=== PATIENT | female | born 1975 | race Caucasian/White ===

== ENCOUNTER 2016-07-14 03:56 | Emergency (ER) | payer OTHER ==
[~2016-07-14] VITALS: Ht 160 cm; Wt 87.8 kg
[2016-07-14 03:58] VITALS: Ht 160 cm; Wt 87.8 kg
[2016-07-14] MEDS ORDERED: ONDANSETRON 4 MG INJ IV STA (04:05)
[2016-07-14] MEDS ORDERED: morphine 4 MG/ML VIAL IV STA (04:05)
[2016-07-14] MEDS ORDERED: LIDOCAINE/MYLANTA 40 ML BTL PO ONE (04:30)
[2016-07-14 04:36] LABS: ADD UMIC YES; URINE BILIRUBIN (Dip) NEGATIVE (NEGATIVE); URINE BLOOD (Dip) TRACE (NEGATIVE); URINE COLOR LT. YELLOW (YELLOW); URINE GLUCOSE (Dip) NEGATIVE (NEGATIVE); URINE KETONES (Dip) NEGATIVE (NEGATIVE); URINE LEUKOCYTE ESTERASE (Dip) 1+ (NEGATIVE); URINE NITRITE (Dip) NEGATIVE (NEGATIVE); URINE TOTAL PROTEIN (Dip) NEGATIVE (NEGATIVE); URINE UROBILINOGEN (Dip) 0.2 E.U./dL (0.1-1.0)
[2016-07-14 04:36] LABS: ADD SCAN DIFF NO
[2016-07-14 04:47] LABS: CHLORIDE 101 mmol/L (97-110)
[2016-07-14 04:48] LABS: POTASSIUM 3.4 mmol/L (3.5-5.1); SODIUM 140 mmol/L (135-144)
[2016-07-14 04:49] LABS: INR 0.99; PROTIME 13.1 Sec (12.2-14.2)
[2016-07-14 04:50] LABS: BASOPHILS % 0.4 % (0.0-2.0); CREATININE 0.59 mg/dl (0.44-1.00); EOSINOPHILS # 0.2 10^3/ul (0.0-0.5); EOSINOPHILS % 1.5 % (0.0-7.0); HEMATOCRIT 32.1 % (37.0-47.0); HEMOGLOBIN 9.4 g/dl (12.0-16.0); LYMPHOCYTES # 3.2 10^3/ul (0.8-2.9); LYMPHOCYTES % 32.9 % (15.0-51.0); MEAN CORPUSCULAR HEMOGLOBIN 20.2 pg (29.0-33.0); MEAN CORPUSCULAR HGB CONC 29.3 g/dl (32.0-37.0); MEAN PLATELET VOLUME 10.7 fl (7.4-10.4); MONOCYTE # 0.7 10^3/ul (0.3-0.9); MONOCYTES % 7.1 % (0.0-11.0); NEUTROPHIL # 5.6 10^3/ul (1.6-7.5); NEUTROPHILS % 57.8 % (39.0-77.0); PARTIAL THROMBOPLASTIN TIME 30.9 Sec (25.0-35.0); PLATELET COUNT 436 10^3/UL (140-415); RED BLOOD COUNT 4.65 10^6/ul (4.20-5.40); WHITE BLOOD COUNT 9.7 10^3/ul (4.8-10.8)
[2016-07-14 04:51] LABS: ANION GAP 17 (8-16); BLOOD UREA NITROGEN 11 mg/dl (7-20); CALCIUM 8.8 mg/dl (8.4-10.2); CARBON DIOXIDE 25 mmol/L (21-31); GLUCOSE 148 mg/dl (70-220)
--- NOTE | 2016-07-14 04:51 | RADRPT ---
PROCEDURE: XR Chest. CLINICAL INDICATION: Chest pain TECHNIQUE: AP Portable chest. COMPARISON: No pertinent prior examinations were submitted for comparison. FINDINGS: The cardiomediastinal silhouette is normal. The lungs are clear. The osseous structures are unrema rkable. IMPRESSION: No acute findings. RPTAT: HIKT .Farrukh Gay MD, MD Date Time Electronically viewed and signed by .Farrukh Gay MD, MD on 07/14/2016 04:51 .T/
[2016-07-14 05:00] VITALS: BP 142/95; PULSE 79; RESP 18
[2016-07-14 05:08] LABS: BACTERIA,URINE MODERATE; SQUAMOUS EPITHELIAL CELL,UR MODERATE
[2016-07-14 05:21] LABS: TROPONIN-I < 0.012 ng/ml (0.00-0.12)
--- NOTE | 2016-07-14 05:40 | ERD ---
ER Documentation Chief Complaint Date/Time DATE: 07/14/16 TIME: 05:38 Chief Complaint epigastric pain since 9pm HPI This is a 41-year-old female with epigastric pain since 9 PM. Pain is mild to moderate in intensity. Burning in sensation. Nonradiating. Mild associated nausea. No vomiting. No other current complaints. ROS All systems reviewed and are negative except as per history of present illness. Allergies Allergies: Coded Allergies: No Known Allergy (Unverified , 07/14/16) PMhx/Soc Medical and Surgical Hx: pt denies Medical Hx, pt denies Surgical Hx History of Surgery: No Anesthesia Reaction: No Hx Neurological Disorder: No Hx Respiratory Disorders: No Hx Cardiac Disorders: No Hx Psychiatric Problems: No Hx Miscellaneous Medical Probl: No Hx Alcohol Use: Yes (SOCIAL) Hx Substance Use: No Hx Tobacco Use: No Smoking Status: Never smoker Physical Exam Vitals Vital Signs Date Time Temp Pulse Resp B/P Pulse Ox O2 Delivery O2 Flow Rate FiO2 07/14/16 05:00 79 18 142/95 98 Room Air 07/14/16 03:58 97.4 81 17 208/96 98 Physical Exam Const: [] Head: Atraumatic Eyes: Normal Conjunctiva ENT: Normal External Ears, Nose and Mouth. Neck: Full range of motion..~ No meningismus. Resp: Clear to auscultation bilaterally Cardio: Regular rate and rhythm, no murmurs Abd: Soft, non tender, non distended. Normal bowel sounds Skin: No petechiae or rashes Back: No midline or flank tenderness Ext: No cyanosis, or edema Neur: Awake and alert Psych: Normal Mood and Affect Result Diagram: 07/14/16 0415 07/14/16 0415 Results 24 hrs Laboratory Tests Test 07/14/16 04:10 07/14/16 04:15 Urine Color LT. YELLOW Urine Clarity CLEAR Urine pH 6.5 Urine Specific [place] 1.015 Urine Ketones NEGATIVE Urine Nitrite NEGATIVE Urine Bilirubin NEGATIVE Urine Urobilinogen 0.2 E.U./dL Urine Leukocyte Esterase 1+ Urine Microscopic RBC 2-5/HPF Urine Microscopic WBC 2-5/HPF Urine Squamous Epithelial Cells MODERATE Urine Bacteria MODERATE Urine Hemoglobin TRACE Urine Glucose NEGATIVE% Urine Total Protein NEGATIVE White Blood Count 9.710^3/ul Red Blood Count 4.6510^6/ul Hemoglobin 9.4g/dl Hematocrit 32.1% Mean Corpuscular Volume 69.0fl Mean Corpuscular Hemoglobin 20.2pg Mean Corpuscular Hemoglobin Concent 29.3g/dl Red Cell Distribution Width 18.0% Platelet Count 38146^3/UL Mean Platelet Volume 10.7fl Neutrophils % 57.8% Lymphocytes % 32.9% Monocytes % 7.1% Eosinophils % 1.5% Basophils % 0.4% Nucleated Red Blood Cells % 0.0/100WBC Neutrophils # 5.610^3/ul Lymphocytes # 3.210^3/ul Monocytes # 0.710^3/ul Eosinophils # 0.210^3/ul Basophils # 0.010^3/ul Nucleated Red Blood Cells # 0.010^3/ul Prothrombin Time 13.1Sec Prothrombin Time Ratio 1.0 INR International Normalized Ratio 0.99 Activated Partial Thromboplast Time 30.9Sec Sodium Level 140mmol/L Potassium Level 3.4mmol/L Chloride Level 101mmol/L Carbon Dioxide Level 25mmol/L Anion Gap 17 Blood Urea Nitrogen 11mg/dl Creatinine 0.59mg/dl Glucose Level 148mg/dl Calcium Level 8.8mg/dl Troponin I < 0.012ng/ml Current Medications Medications (Trade) Dose Ordered Sig/[place] Route PRN Reason Start Time Stop Time Status Last Admin Dose Admin Morphine Sulfate (morphine) 4 mg ONCE STAT IV 07/14/16 04:05 07/14/16 04:14 DC 07/14/16 04:19 Ondansetron HCl (Zofran Inj) 4 mg ONCE STAT IV 07/14/16 04:05 07/14/16 04:14 DC 07/14/16 04:18 Miscellaneous Medication (Gi Cocktail (2)) 40 ml ONCE ONCE PO 07/14/16 04:30 07/14/16 04:31 DC 07/14/16 04:18 Procedures/MDM EKG: Rate/Rhythm: [Normal Sinus Rhythm] QRS, ST, T-waves: [No changes consistent w/ acute ischemia] Impression: [No evidence of ischemia or arrhythmia] Chest X-ray 1V Interpreted by me: Soft Tissue: No acute abnormalities Bones: No acute abnormalities Mediastinum/Cardiac Silhouette/Lungs: [No acute abnormalities] Medical decision-making: This is a 41-year-old female who comes in essentially for abdominal pain. Seems epigastric in location. Likely gastritic. No evidence of intra-abdominal process. Patient feeling much better. Patient be discharged with Zantac, Carafate. Return in 8 hours for serial abdominal exams. Departure Diagnosis: Primary Impression: Epigastric pain Condition: Stable DEEPAK BARKER Jul 14, 2016 05:40
[2016-07-14] MEDS ORDERED: ONDA4TAB14 PO (05:41)
[2016-07-14] MEDS ORDERED: SUCR1TAB56 PO (05:41)
[2016-07-14] MEDS ORDERED: RANI150T9 PO (05:41)
== END 2016-07-14 05:50 | disposition home or self-care (01) ==
LOC: E/R 03:56
DX: R10.13 Epigastric pain (principal); R11.0 Nausea
CPT/HCPCS: 36415; 71010; 80048; 81001; 81003; 84484; 85025; 85610; 85730; 93005; 96374; 96375; J2270; J2405; Z7502; Z7610